=== PATIENT | male | born 1955 | race Caucasian/White ===

== ENCOUNTER 2024-05-23 13:32 | Outpatient (CLI) | payer MEDICARE, OTHER ==
--- NOTE | 2024-05-24 08:12 | SLEEP CARE CONSULTATION ---
Information from patient questionnaire entered by Cristóbal Diallo. I have reviewed and concur with the information entered by Cristóbal Diallo. This document represents the service I personally performed and the decisions made by me, Jori Estrella MD, [facility]. History of Present Illness Service Date and Time: 05/23/2024 1332 Reason for Visit: New patient Chief Complaint: reports: Other (ESTABLISING NEW PROVIDER OLD OFFICE CLOSED) Date of Onset: 9YRS Usual bedtime: 2330 Snores at night: Yes Observed to quit breathing while asleep: No Sleeps alone due to snoring: No Number of times waking at night: 1 Reasons for waking at night: reports: Bathroom Toss, Turn, or Twitch while sleeping: No Recalls having dreams: Yes Usually gets out of bed at: 0630 Feels refreshed in the morning: Yes Morning headache: No Sleepy or fatigued during the day: No Ever fallen asleep while driving: No Takes day naps: No Dreams during day naps: No Prior sleep studies: Yes Additional HPI information: I had the pleasure of seeing Mr. Floyd today regarding obstructive sleep apnea- hypopnea. As you know, he is a 68-year-old gentleman who was diagnosed with the sleep-disordered breathing at [facility] in [place]. The AHI was 13.0, and sony oxygen saturation was 81% on 06/07/2024. He was prescribed a CPAP device set at 5 12 cmH2O. He uses the ResMed AirSense 10 every night and all night. The compliance data show usage in 312 out of the past 365 nights, averaging 6.1 hours a night. The residual AHI is 0.7 and average air leak is 3.2 L/minute. He wears a ResMed N30i mask. He gets his supplies from [facility]. He finds the treatment beneficial. - Parasomnia Symptoms Ever been unable to move upon waking from sleep: No Walks in sleep: No Talks in sleep: No Ever acted out dreams in sleep: No Ever felt weak in the knees when startled or emotional: No Bothered by creepy, crawly, restless sensations in legs: No Problems with memory or concentration: No Subjective Initial Villanueva Sleepiness Scale score: 7 (05/23/24) Social History The patient's occupation is a RE. Patient is and lives in [place]. Have you smoked in the past 12 months: No Alcohol use: No Caffeine use: Yes Caffeine amount and frequency: 3CUPS MORNINGS Family History Family history of sleep disordered breathing: Yes Family Hx Sleep Apnea: Father: Snoring, Sibling: Snoring, Sleep apnea - Treated Allergies and Home Medications Known drug allergies: No Drug allergies reviewed: Yes Home medication list reviewed: Yes Review of Systems Cardiovascular: denies: high blood pressure, palpitations, chest pain, irregular heart rate or pulse, leg or foot swelling, have to sleep sitting up, other Respiratory: denies: shortness of breath, wheeze, sputum production, chronic cough, other Gastrointestinal: denies: heartburn, difficulty swallowing, nausea, vomitting, diarrhea, abdominal pain, other Urinary: denies: incontinence, frequency, urgency, impotence, other Neurological: denies: headaches, seizure, head trauma, disorientation, speech dysfunction, gait or balance problems, fainting or unconsciousness, other Psychiatric: denies: Attention Deficit Hyperactivity, anxiety, depression, mood disorder, claustrophobia, other Ear/Nose/Throat: denies: nasal congestion, sinus problems, nose bleeds, dry mouth/throat, hoarseness, injury to nose, tonsillectomy, wisdom teeth removed, other Endocrine: denies: thyroid disease, history of goiter, sluggishness, too hot or cold, excessive thirst, increased appetite, increased urination, unexplained weakness, other Musculoskeletal: denies: joint pain, neck pain, back pain, joint swelling, muscle pain or cramping, mobility problems, other Immunologic: denies: sneezing, rash, itching, allergies to food or environment, other Physical Exam Vital signs obtained and entered by: CRISTÓBAL Younger MA Blood Pressure: 147/70 (RIGHT ARM) Cuff size: regular Heart Rate: 57 O2 Saturation: 98 Height: 6 ft Weight: 196 lb Body Mass Index: 26.6 BMI Classification: Overweight Neck circumference: 16 Mood/affect: normal HEENT: No craniofacial malformation Nostrils: patent to airflow Turbinates: normal Septum: midline Mouth and throat: narrow oropharynx Soft palate: long Hard palate: normal Uvula: normal Uvula visualization: 50% Mallampati Class II Tongue: normal in size Tonsils: small Chin and jaw: normal size and position Neck: normal w/o lymphadenopathy or thyromegaly Heart: regular rate and rhythm Lungs: clear bilaterally Extremities: no edema or clubbing Neurologic: intact Impression and Plan IMPRESSION: 1. Obstructive Sleep Apnea-Hypopnea Syndrome, mild, as previously diagnosed. The patient has good CPAP compliance. The current pressure setting appears effective and comfortable. He reports significant improvement on the treatment. No adjustment is necessary today. Plan: 1. Prescription made for supplies through [facility]. 2. Continue with autoCPAP set at 5 12 cmH2O. 3. Return for a follow up in a year or earlier if there is any problem. Follow up with Sleep Care in: 1 year Visit Type: In Office Time Spent with Patient (minutes): 15 Provider Statement: I spent 100% of the Face to Face Visit with the patient with greater than 50% spent counseling the patient and coordination of care.
[2024-05-24 08:22] VITALS: BP 147/70; O2SAT 98
== END 2024-05-23 13:33 | disposition home or self-care (01) ==
LOC: SC 13:32
PROVIDERS: ATTEND Internal Medicine Pulmonary Disease
DX: G47.33 Obstructive sleep apnea (adult) (pediatric) (principal)
CPT/HCPCS: 99202; G0463; 99212